=== PATIENT | female | born 1965 | race Caucasian/White ===

== ENCOUNTER 2017-06-29 16:16 | Outpatient (CLI) | payer BC | END 2017-06-29 16:17 | disposition home or self-care (01) | LOC: BICMRI 16:16 | PROVIDERS: ATTEND Family Medicine | DX: M79.671 Pain in right foot (principal); S96.911A Strain of unspecified muscle and tendon at ankle and foot level, right foot, initial encounter ==

== ENCOUNTER 2018-03-15 16:06 | Outpatient (CLI) | payer BC | END 2018-03-15 16:07 | disposition home or self-care (01) | LOC: BICMAMMO 16:06 | PROVIDERS: ATTEND Student in an Organized Health Care Education/Training Program | DX: Z12.31 Encounter for screening mammogram for malignant neoplasm of breast (principal); Z80.3 Family history of malignant neoplasm of breast | CPT/HCPCS: 77063; 77067 ==

== ENCOUNTER 2019-01-10 13:08 | Outpatient (CLI) | payer BC ==
--- NOTE | 2019-01-10 14:21 | CT ---
CT CHEST HIGH-RESOLUTION PROTOCOL WITHOUT IV CONTRAST: INDICATION: History of groundglass opacities present within the lungs on prior CT evaluation. COMPARISON: Prior CT of the chest, abdomen and pelvis dated April 17, 2018 and a CTA of the chest dated July [id number] from [facility]. FINDINGS: Supine and prone and high-resolution CT images were obtained. A tiny focus of groundglass opacity is present within the left upper lobe measuring 1.3 cm which decreases in conspicuity and size on the prone images. There is an area of subsegmental linear atelectasis seen near this location. No additio nal focus of groundglass opacity is noted. No peripheral interstitial thickening is evident. No bronchiectasis is demonstrated. There are mild vascular calcifications. Visualized upper abdomen demo nstrates cholecystectomy change and fatty liver. IMPRESSION: No small area of ground glass opacity present within the left upper lobe with some adjacent subsegmen diony atelectasis may reflect areas of small peripheral airways disease and subsegmental atelectasis. A small focal region of pneumonitis is not entirely excluded. The extent of the scattered foci of dea und glass opacities within both lungs on a prior CT dated April 17, 2018 has markedly improved. As a conservative measure would recommend a noncontrast follow-up routine CT of the chest in 6-8 week s to document stability or resolution. Transcribed Date/Time: 01/10/2019 2:36 PM
== END 2019-01-10 13:09 | disposition home or self-care (01) ==
LOC: SCSCT 13:08
PROVIDERS: ATTEND Family Medicine
DX: R91.8 Other nonspecific abnormal finding of lung field (principal); J98.11 Atelectasis; J18.9 Pneumonia, unspecified organism
CPT/HCPCS: 71250

== ENCOUNTER 2019-01-24 13:20 | Outpatient (CLI) | payer BC ==
--- NOTE | 2019-01-24 15:20 | MRI ---
MRI lumbar spine noncontrast: HISTORY: Lumbosacral pain. COMPARISON: None FINDINGS: Appropriate T1 marrow signal intensity of the lumbar vertebra. Lumbar spine vertebral body height is maintained. No fracture. No significant STIR hyperintensity to suggest vertebral body edema or ligamentous injury Appropriate signal intensity of the paraspinal muscles Appropriate signal intensity visualized solid organs Conus medullaris terminates at the upper aspect of L1 T12-L1:Adequate disc hydration. No significant central canal stenosis or significant neural foraminal narrowing L1-L2:Adequate disc hydration. No significant central canal stenosis or significant foraminal narrowi ng L2-L3:Adequate disc hydration. No significant central canal stenosis or significant neural foraminal narrowing L3-L4:Adequate disc hydration. Minimal generalized disc bulge, ligament flavum thickening and facet h ypertrophy result in minimal central canal stenosis. Bilaterally, neural foraminal are patent. L4-L5:Mild loss of disc space height. Broad-based disc bulge, ligamentum flavum thickening and facet hypertrophy result in mild central canal stenosis. Narrowing of bilateral subarticular zones. Disc material abuts but does not obscure either traversing L5 nerve root. Moderate right foraminal narrowi ng due to disc material. L5-S1:Adequate disc hydration. No significant central canal stenosis or significant neural foraminal narrowing IMPRESSION: 1. Moderate right neural foraminal narrowing at L4-L5 due to disc material. 2. Narrowing of bilateral subarticular zones at L4 4-L5. Nevertheless, no significant obscuration the traversing L5 nerve root
--- NOTE | 2019-01-24 15:27 | MRI ---
MRI CERVICAL SPINE WITHOUT CONTRAST: HISTORY: Neck pain.. COMPARISON: None. FINDINGS: Straightening of normal cervical lordosis may be due to patient position. Appropriate T1 marrow sign al intensity. No fracture. No significant STIR hyperintensity to suggest vertebral body edema or ligamentous injury. Spondylolisthesis: 1.5 mm of anterolisthesis of C2 to upon C3. Visualized brain parenchyma, cervical medullary junction, cervical cord and the upper thoracic cord h ave a normal size and signal intensity. C2-C3: Central disc protrusion. Mild central canal stenosis. Bilaterally neural foramina are patent. C3-C4: Central disc protrusion. No significant central canal stenosis. Right neural foramen is patent . Minimal left foraminal narrowing due to uncovertebral hypertrophy. C4-C5: Central disc protrusion. Subarachnoid space is effaced. Mild deformity the cervical cord. Mild central canal stenosis. Bilaterally, neural foramina are patent. C5-C6: Central/left paracentral disc osteophyte complex. Subarachnoid space is effaced. Mild to moder ate central canal stenosis. No T2 hyperintensity in the cord. Bilaterally, neural foramina are patent. C6-C7: No significant central canal stenosis. Bilaterally, neural foramina are patent. C7-T1: No significant central canal stenosis. Bilaterally, neural foramina are patent. IMPRESSION: Degenerative changes of the cervical spine as detailed above. Transcribed Date/Time: 01/24/2019 3:29 PM
== END 2019-01-24 13:21 | disposition home or self-care (01) ==
LOC: SCSMRI 13:20
PROVIDERS: ATTEND Family Medicine
DX: M47.22 Other spondylosis with radiculopathy, cervical region (principal)
CPT/HCPCS: 72141; 72148

== ENCOUNTER 2019-07-18 13:43 | Outpatient (CLI) | payer OTHER ==
--- NOTE | 2019-07-18 15:54 | MMO ---
Bilateral MAMMO Bilat Screen [facility]. CLINICAL HISTORY: Patient is 54 years old and is seen for screening. The patient has no family history of breast cancer. The patient has no personal history of cancer. VIEWS: The views performed were: bilateral craniocaudal with tomosynthesis and bilateral mediolateral oblique with tomosynthesis. FILMS COMPARED: The present examination has been compared to prior imaging studies performed at [facility] on 07/29/2015, 01/16/2017 and 03/15/2018, and at [facility] on 09/04/2009. This study has been interpreted with the assistance of computer-aided detection. MAMMOGRAM FINDINGS: There are scattered fibroglandular densities. Finding 1: There are stable benign appearing calcifications seen in both breasts. Finding 2: There are stable benign appearing densities seen in both breasts. There are no suspicious masses, suspicious calcifications, or new areas of architectural distortion. IMPRESSION: THERE IS NO MAMMOGRAPHIC EVIDENCE OF MALIGNANCY. A ROUTINE FOLLOW-UP MAMMOGRAM IN 1 YEAR IS RECOMMENDED. THE RESULTS OF THIS EXAM WERE SENT TO THE PATIENT. ACR BI-RADS Category 2 - Benign finding MAMMOGRAPHY NOTE: 1. A negative mammogram report should not delay a biopsy if a dominant of clinically suspicious mass is present. 2. Approximately 10% to 15% of breast cancers are not detected by mammography. 3. Adenosis and dense breasts may obscure an underlying neoplasm. Reported by: ENEDELIA ARCHULETA MD Electonically Signed: [id number]
== END 2019-07-18 13:44 | disposition home or self-care (01) ==
LOC: BICMAMMO 13:43
PROVIDERS: ATTEND Family Medicine
DX: Z12.31 Encounter for screening mammogram for malignant neoplasm of breast (principal)
CPT/HCPCS: 77063; 77067